=== PATIENT | male | born 1945 | race Caucasian/White ===

== ENCOUNTER 2020-09-20 11:47 | Inpatient (IN) ==
[2020-09-20] MEDS ORDERED: Ipratropium/Albuterol Neb 3 ML IH ONE (12:01)
[2020-09-20] MEDS ORDERED: Ipratropium/Albuterol Neb 3 ML ONE (12:02)
[2020-09-20] MEDS ORDERED: 0.9 % Sodium Chloride 1,000 ML IVC ONE ×2 (12:02→13:06)
[2020-09-20 12:30] LABS: Basophils # 0.1 K/mcL (0.0-0.2); Basophils % 1.3 %; Eosinophils % 0.5 %; Hematocrit 35.7 % (37.5-50.1); Hemoglobin 10.9 g/dL (12.9-16.9); Immature Granulocytes % 2.7 % (0-4); Lymphocytes # 1.5 K/mcL (0.6-4.6); Lymphocytes % 19.4 %; Mean Corpuscular HGB Conc 30.5 g/dL (31.6-35.5); Mean Corpuscular Hemoglobin 25.8 pg (28.0-33.3); Mean Corpuscular Volume 84.4 fL (83.0-100.0); Mean Platelet Volume 10.6 fL (9.4-12.4); Monocytes # 0.8 K/mcL (0.0-1.3); Monocytes % 10.1 %; Neutrophils # 5.2 K/mcL (1.6-8.9); Nucleated Red Blood Cells 0.3 /100 WBC (0); Platelet Count 542 K/mcL (140-400); Red Blood Count 4.23 M/mcL (4.19-5.50); White Blood Count 7.8 K/mcL (4.3-11.1)
[2020-09-20 12:54] LABS: BUN/Creatinine Ratio 13 (6-26); Blood Urea Nitrogen 14 mg/dL (8-23); Calcium 8.8 mg/dL (8.6-10.3); Carbon Dioxide 21 mEq/L (23-29); Chloride 99 mEq/L (98-107); Glucose 157 mg/dL (70-105); Magnesium 1.8 mg/dL (1.6-2.6); Osmolality,Calculated 290 (280-300); Potassium 2.9 mEq/L (3.5-5.1); Sodium 138 mEq/L (136-145); eGFR For African Americans > 60 (> 60); eGFR For Non-African Americans > 60 (> 60)
[2020-09-20 12:56] LABS: Troponin I < 0.03 ng/mL (< 0.04)
[2020-09-20] MEDS ORDERED: Potassium Effervescent 25 MEQ TABLET.EFF PO ONE (13:06)
[2020-09-20 13:48] LABS: Bacteria,Urine Few per hpf (None-Few); Bilirubin,Urine Negative (Negative); Blood,Urine Negative (Negative); Clarity,Urine Turbid (Clear); Color,Urine Yellow (Yellow); Glucose,Urine (UA) Normal (Normal); Hyaline Casts,Urine Many per lpf (None Seen); Ketones,Urine 10 mg/dL (Negative); Leukocyte Esterase,Urine Negative (Negative); Mucus,Urine Few per lpf (None-Few); Nitrite,Urine Negative (Negative); Protein,Urine 30 mg/dL (Neg-Trace); Specific Gravity,Urine 1.023 (1.010-1.025)
[2020-09-20] MEDS ORDERED: Ondansetron ODT 4 MG TAB.RAPDIS SL PRN (14:36)
[2020-09-20] MEDS ORDERED: Melatonin 3 MG TABLET PO PRN (14:36)
[2020-09-20] MEDS ORDERED: Naloxone 0.4 MG/ML INJ IVP PRN (14:36)
[2020-09-20] MEDS ORDERED: Perflutren Lipid Microsphere 1.3 ML in 0.9 % Sodium Chloride 8.7 ML IVP PRN (14:40)
[2020-09-20 15:18] LABS: INR 1.3; Prothrombin Time 15.2 Seconds (9.4-12.1)
[2020-09-20] MEDS: DilTIAZem 50 MG in 0.9 % Sodium Chloride 40 ML IVC SCH ×2 (15:58→19:48)
[2020-09-20] MEDS: Acetaminophen 325 MG TABLET PO PRN (17:12)
[2020-09-20] MEDS: *HR* Enoxaparin 120 MG/0.8 ML SYRINGE SQ SCH (17:12)
[2020-09-20 17:45] LABS: Troponin I < 0.03 ng/mL (< 0.04)
[2020-09-20 17:58] LABS: Thyroid Stimulating Hormone 1.239 mcIU/mL (0.340-5.600)
[2020-09-20] MEDS ORDERED: *HR* Warfarin 5 MG TABLET PO ONE (18:00)
[2020-09-20] MEDS ORDERED: Warfarin perPT PO PRN (18:00)
[2020-09-20] MEDS ORDERED: Metoprolol XL (24 HR) Succ 50 MG TAB.ER.24H PO SCH (21:00)
[2020-09-21] MEDS: DilTIAZem 50 MG in 0.9 % Sodium Chloride 40 ML IVC SCH (04:30)
[2020-09-21 06:56] LABS: Basophils # 0.1 K/mcL (0.0-0.2); Basophils % 1.1 %; Eosinophils % 0.5 %; Hematocrit 32.5 % (37.5-50.1); Hemoglobin 10.1 g/dL (12.9-16.9); Immature Granulocytes % 1.6 % (0-4); Lymphocytes % 12.7 %; Mean Corpuscular HGB Conc 31.1 g/dL (31.6-35.5); Mean Corpuscular Hemoglobin 25.9 pg (28.0-33.3); Mean Corpuscular Volume 83.3 fL (83.0-100.0); Mean Platelet Volume 10.4 fL (9.4-12.4); Monocytes # 0.5 K/mcL (0.0-1.3); Monocytes % 6.7 %; Neutrophils # 5.8 K/mcL (1.6-8.9); Nucleated Red Blood Cells 0.3 /100 WBC (0); Platelet Count 441 K/mcL (140-400); Red Cell Distribution Width 17.4 % (11.5-14.5); Segmented Neutrophils % 77.4 %; White Blood Count 7.5 K/mcL (4.3-11.1)
[2020-09-21 07:03] LABS: INR 1.4
[2020-09-21 07:17] LABS: BUN/Creatinine Ratio 20 (6-26); Blood Urea Nitrogen 18 mg/dL (8-23); Calcium 8.6 mg/dL (8.6-10.3); Carbon Dioxide 26 mEq/L (23-29); Chloride 103 mEq/L (98-107); Glucose 103 mg/dL (70-105); Magnesium 1.9 mg/dL (1.6-2.6); Osmolality,Calculated 290 (280-300); Potassium 3.2 mEq/L (3.5-5.1); Sodium 139 mEq/L (136-145); eGFR For African Americans > 60 (> 60); eGFR For Non-African Americans > 60 (> 60)
[2020-09-21] MEDS: Budesonide/Formoterol 160/4.5 1 PUFF INH IH SCH ×2 (08:32→21:14)
[2020-09-21] MEDS ORDERED: *HR* LORazepam 2 MG/ML VIAL IVP ONE (08:39)
[2020-09-21] MEDS: Aspirin 325 MG TABLET PO SCH (09:24)
[2020-09-21] MEDS: Metoprolol XL (24 HR) Succ 50 MG TAB.ER.24H PO SCH ×2 (09:24→19:57)
[2020-09-21] MEDS ORDERED: Furosemide 40 MG/4 ML VIAL IVP ONE (09:49)
[2020-09-21] MEDS: Levalbuterol Neb 0.63 MG/3 ML IH SCH ×3 (10:59→21:14)
[2020-09-21] MEDS ORDERED: Isovue-370 500 ML BOTTLE IVP ONE (12:22)
[2020-09-21 13:15] LABS: Adenovirus Not Detected (Not Detect); Bordetella Pertussis Not Detected (Not Detect); Chlamydophila pneumoniae Not Detected (Not Detect); Coronavirus 229E Not Detected (Not Detect); Coronavirus HKU1 Not Detected (Not Detect); Coronavirus NL63 Not Detected (Not Detect); Coronavirus OC43 Not Detected (Not Detect); Human Metapneumovirus Not Detected (Not Detect); Human Rhinovirus/Enterovirus Not Detected (Not Detect); Influenza A Subtype 2009 H1 Not Detected (Not Detect); Influenza B Not Detected (Not Detect); Mycoplasma pneumoniae Not Detected (Not Detect); Parainfluenza Virus 1 Not Detected (Not Detect); Parainfluenza Virus 2 Not Detected (Not Detect); Parainfluenza Virus 3 Not Detected (Not Detect); Parainfluenza Virus 4 Not Detected (Not Detect); Respiratory Syncytial Virus Not Detected (Not Detect); SARS-CoV-2 Not Detected (Not Detect)
[2020-09-21] MEDS ORDERED: *HR* Digoxin 0.5 MG/2 ML AMPUL IVP ONE (14:01)
[2020-09-21] MEDS ORDERED: MethylPREDNISolone 40 MG/ML VIAL IVP SCH (14:15)
[2020-09-21] MEDS: *HR* Enoxaparin 120 MG/0.8 ML SYRINGE SQ SCH ×2 (14:41→19:57)
[2020-09-21] MEDS ORDERED: Vancomycin 1,750 MG/517.5 ML IV.SOLN IVPB ONE (17:00)
[2020-09-21] MEDS: Piperacillin/Tazobactam 3.375 GM in 0.9 % Sodium Chloride Mini Bag 100 ML IVPB SCH (17:03)
[2020-09-21] MEDS ORDERED: *HR* Warfarin 5 MG TABLET PO ONE (18:00)
[2020-09-21] MEDS: *HR* Digoxin 0.5 MG/2 ML AMPUL IVP SCH (18:41)
[2020-09-21] MEDS: MethylPREDNISolone 40 MG/ML VIAL IVP SCH (19:57)
[2020-09-21] MEDS ORDERED: Furosemide 40 MG/4 ML VIAL IVP SCH (21:00)
[2020-09-21] MEDS: Acetaminophen 325 MG TABLET PO PRN (22:58)
[2020-09-21 23:43] LABS: ABG Base Excess 0 mEq/L (-2 to 3); ABG HCO3 23 mEq/L (21-27); ABG Oxygen Saturation 92 % (95-98); ABG PCO2 31 mmHg (35-45); ABG PH 7.48 pH Units (7.32-7.45); ABG PO2 57 mmHg (85-104); ABG TCO2 24 mEq/L (20-26)
[2020-09-22] MEDS: *HR* Digoxin 0.5 MG/2 ML AMPUL IVP SCH ×2 (00:22→06:14)
[2020-09-22] MEDS: Piperacillin/Tazobactam 3.375 GM in 0.9 % Sodium Chloride Mini Bag 100 ML IVPB SCH ×2 (00:22→09:21)
[2020-09-22 03:04] LABS: Hematocrit 31.3 % (37.5-50.1); Hemoglobin 9.7 g/dL (12.9-16.9); Mean Corpuscular Hemoglobin 25.7 pg (28.0-33.3); Mean Platelet Volume 10.3 fL (9.4-12.4); Platelet Count 500 K/mcL (140-400); Red Blood Count 3.77 M/mcL (4.19-5.50); Red Cell Distribution Width 17.3 % (11.5-14.5)
[2020-09-22 03:11] LABS: INR 1.7; Prothrombin Time 19.7 Seconds (9.4-12.1)
[2020-09-22 03:24] LABS: BUN/Creatinine Ratio 20 (6-26); Blood Urea Nitrogen 18 mg/dL (8-23); Calcium 8.7 mg/dL (8.6-10.3); Carbon Dioxide 25 mEq/L (23-29); Chloride 103 mEq/L (98-107); Glucose 162 mg/dL (70-105); Osmolality,Calculated 291 (280-300); Potassium 3.8 mEq/L (3.5-5.1); Sodium 138 mEq/L (136-145); eGFR For African Americans > 60 (> 60); eGFR For Non-African Americans > 60 (> 60)
[2020-09-22] MEDS: Levalbuterol Neb 0.63 MG/3 ML IH SCH ×5 (03:56→23:59)
[2020-09-22] MEDS ORDERED: Vancomycin 1,500 MG/265 ML IV.SOLN IVPB SCH (05:00)
[2020-09-22] MEDS ORDERED: *HR* LORazepam 2 MG/ML VIAL IVP PRN (07:12)
[2020-09-22] MEDS ORDERED: Azithromycin 500 MG in 0.9 % Sodium Chloride 250 ML IVPB SCH (08:00)
[2020-09-22] MEDS: Aspirin 325 MG TABLET PO SCH (08:05)
[2020-09-22] MEDS: Metoprolol XL (24 HR) Succ 50 MG TAB.ER.24H PO SCH (08:05)
[2020-09-22] MEDS: MethylPREDNISolone 40 MG/ML VIAL IVP SCH (08:05)
[2020-09-22] MEDS: *HR* Enoxaparin 120 MG/0.8 ML SYRINGE SQ SCH (08:12)
[2020-09-22] MEDS ORDERED: Furosemide 40 MG/4 ML VIAL IVP SCH (09:00)
[2020-09-22] MEDS ORDERED: *HR* FentaNYL (PF) 100 MCG/2 ML VIAL IVP PRN ×2 (09:52→14:24)
[2020-09-22] MEDS ORDERED: Atropine 1% Opth Drops 100 DROP/5 ML BOTTLE SL PRN (09:53)
[2020-09-22] MEDS ORDERED: Haloperidol Oral Conc 10 MG/5 ML UDC PO PRN (09:53)
[2020-09-22] MEDS: Budesonide/Formoterol 160/4.5 1 PUFF INH IH SCH (10:59)
[2020-09-22] MEDS ORDERED: *HR* Warfarin 3 MG TABLET PO ONE (18:00)
[2020-09-22 19:05] VITALS: BP 129/68
[2020-09-22] MEDS: *HR* LORazepam 2 MG/ML VIAL IVP PRN (20:07)
[2020-09-23] MEDS: *HR* LORazepam 2 MG/ML VIAL IVP PRN (02:37)
[2020-09-23 03:41] LABS: Prothrombin Time 22.9 Seconds (9.4-12.1)
== END 2020-09-23 03:50 | disposition expired | DRG 308 ==
LOC: EMEROOARM 11:47 → 2ANU 11:47 → SUATTDRO 15:04 → 2ANU 16:02
PROVIDERS: ADMIT Internal Medicine; ATTEND Internal Medicine